=== PATIENT | male | born 1990 | race American Indian/Alaskan Native ===

== ENCOUNTER 2016-11-14 10:47 | Emergency (ER) | payer SELFPAY ==
[2016-11-14 12:15] LABS: Basophils % (Auto) 0.6 % (0.0-1.8); Eosinophils % (Auto) 3.5 % (0.0-4.3); Hematocrit 47.2 % (35.5-45.6); Mean Corpuscular HGB Conc 34 % (32-34); Mean Corpuscular Hemoglobin 32 pg (28-32); Mean Corpuscular Volume 93 fl (84-94); Platelet Count 283 K/mm3 (140-440); Red Blood Count 5.07 M/mm3 (3.65-5.03); Red Cell Distribution Width 12.5 % (13.2-15.2); White Blood Count 10.4 K/mm3 (4.5-11.0)
[2016-11-14 12:20] LABS: Bilirubin,Urine NEG (Negative); Blood,Urine NEG (Negative); Ketones,Urine NEG (Negative); Leukocyte Esterase,Urine NEG (Negative); Mucus,Urine 2+ /HPF; Nitrite,Urine NEG (Negative); Urobilinogen,Urine < 2.0 mg/dL (<2.0); WBC,Urine < 1.0 /HPF (0.0-6.0)
[2016-11-14 12:52] LABS: Alanine Aminotransferase 25 units/L (7-56); Albumin 4.4 g/dL (3.9-5); Albumin/Globulin Ratio 1.4 %; Alkaline Phosphatase 79 units/L (35-129); Anion Gap 16 mmol/L; BUN/Creatinine Ratio 9.16; Bilirubin,Total 1.2 mg/dL (0.1-1.2); Blood Urea Nitrogen 11 mg/dL (9-20); Calcium 9.5 mg/dL (8.4-10.2); Carbon Dioxide 28 mmol/L (22-30); Chloride 94.4 mmol/L (98-107); Glucose 84 mg/dL (75-100); Lipase 21 units/L (13-60); Potassium 4.6 mmol/L (3.6-5.0); Sodium 134 mmol/L (137-145); Total Protein 7.5 g/dL (6.3-8.2)
[2016-11-14] MEDS ORDERED: ALUM-MAG HYDROX-SIMETH 200-200-20MG/5ML PO ONE (14:11)
[2016-11-14] MEDS ORDERED: BENTYL IM ONE (14:11)
[2016-11-14] MEDS ORDERED: LIDOCAINE VISCOUS 2% PO ONE (14:11)
--- NOTE | 2016-11-14 15:16 | Emergency Department Report ---
Entered by LATOYA NICOLE, acting as scribe for HAO LUCIANO PA. ED Abdominal Pain HPI - General Chief Complaint: Abdominal Pain Stated Complaint: ABD PAIN Time Seen by Provider: 11/14/16 12:56 Source: patient Mode of arrival: Ambulatory Limitations: No Limitations - History of Present Illness Initial Comments: 26 y/o male with no significant PMHx, presents to the ED c/o epigastric abdominal pain beginning 6 days ago. The patient states that the night before the symptoms began, he ate a mcflurry and had some beer. He states he has a Hx of lactose intolerance that causes abdominal pain. The symptoms are not alleviated with OTC milk of magnesia. Associated symptoms of nausea, vomiting ( no episodes since 3 days ago), and diarrhea (before and after taking milk of magnesia), but he denies SOB, fever, chills, bloody stool, urinary frequency, urinary urgency, penile discharge, cough, hematuria, and chest pain. Noted the patient's children recently began daycare and had fever/URI symptoms. MD Complaint: abdominal pain -: days(s) (6 days ago) Migration to: no migration Severity scale (0 -10): 10 (occasionally 10/10, currently 1/10 in the ED) Quality: other (twisting, squeezing) Consistency: intermittent Improves With: nothing Worsens With: eating Context: sick contacts (patient's children recently started daycare, have fever/ URI symptoms), other (patient notes that he had beer and a mcflurry prior to the onset of the symptoms, has Hx of lactose intolerance) Associated Symptoms: nausea, vomiting (last episode of vomiting was 3 days ago) , diarrhea. denies: fever, chills, dysuria, hematemesis, other (blood in stool , SOB, chest pain, penile discharge, cough, rhinorrhea) Treatments Prior to Arrival: other (OTC milk of magnesia) - Related Data Previous Rx's Medication Instructions Recorded Last Taken Type Ondansetron [Zofran Odt] 4 mg PO Q8HR #20 tab.rapdis 11/14/16 Unknown Rx Allergies Allergy/AdvReac Type Severity Reaction Status Date / Time No Known Allergies Allergy Unverified 11/14/16 11:29 ED Review of Systems Comment: All other systems reviewed and negative Constitutional: denies: chills, fever Respiratory: denies: cough, shortness of breath Cardiovascular: denies: chest pain Gastrointestinal: abdominal pain (epigastric), nausea, vomiting, diarrhea Genitourinary: denies: urgency, dysuria, frequency, hematuria, discharge Neurological: denies: weakness, numbness ED Past Medical Hx - Past Medical History Hx GERD: Yes - Surgical History Past Surgical History?: No - Social History Smoking Status: Current Every Day Smoker Substance Use Type: Alcohol - Medications Home Medications: Home Medications Medication Instructions Recorded Confirmed Last Taken Type Ondansetron [Zofran Odt] 4 mg PO Q8HR #20 tab.rapdis 11/14/16 Unknown Rx ED Physical Exam - General Limitations: No Limitations - Other Other exam information: GENERAL: The patient is well-developed and well-nourished. Patient is in NAD. HEAD: Normocephalic. Atraumatic. EYES: Extraocular motions are intact, PERRL. EARS: External auditory canals and tympanic membranes clear; hearing grossly intact. NOSE: Normal nasal mucosa with no nasal discharge. THROAT: No erythema, swelling or exudates. NECK: Supple, nontender, without lymphadenopathy. No meningitic signs are noted. CHEST/LUNGS: Clear to auscultation throughout. HEART/CARDIOVASCULAR: Regular rate and rhythm. No murmurs, rubs or gallops. ABDOMEN: Abdomen is soft, tender to palpation over the epigastric area, Bowel sounds normoactive. No guarding or rebound tenderness, no rigidity. EXTREMITIES: No cyanosis, clubbing or edema. Peripheral pulses intact. Capillary refill less than 2 seconds. ED Course Vital Signs 11/14/16 11:29 Temperature 98.2 F Pulse Rate 76 Respiratory 18 Rate Blood Pressure 118/62 O2 Sat by Pulse 100 Oximetry ED Medical Decision Making - Lab Data Result diagrams: 11/14/16 11:50 11/14/16 11:50 Vital Signs 11/14/16 11:29 Temperature 98.2 F Pulse Rate 76 Respiratory 18 Rate Blood Pressure 118/62 O2 Sat by Pulse 100 Oximetry - Medical Decision Making 26 y/o male presents complaining of epigastric abdominal pain beginning 6 days ago. His lab results and urinalysis are essentially negative. Patient was given GI cocktail and reports symptomatic relief post medication. Patient is in no acute distress at this time. He will be discharged home on Zofran and is encouraged to follow up with a primary care provider. He is encouraged to return to the emergency room for any worsening symptoms. ED Disposition Clinical Impression: Abdominal pain Qualifiers: Abdominal location: epigastric Qualified Code(s): R10.13 - Epigastric pain Disposition: DISCHARGED TO HOME OR SELFCARE Is pt being admited?: No Does the pt Need Aspirin: No Condition: Stable Instructions: Gastroenteritis (ED) Additional Instructions: Follow-up with primary care provider. Return to the emergency department if symptoms worsen. Prescriptions: Ondansetron [Zofran Odt] 4 mg PO Q8HR #20 tab.rapdis Referrals: PRIMARY CAREMD [Primary Care Provider] - 3-5 Days GORAN LAM MD [Staff Physician] - 3-5 Days Forms: Work/School Release Form(ED) Time of Disposition: 15:14 This documentation as recorded by the COREY jane GRACE,accurately reflects the service I personally performed and the decisions made by ,HAO LUCIANO PA.
[2016-11-14 15:24] VITALS: BP 121/70
== END 2016-11-14 15:22 | disposition home or self-care (01) ==
LOC: ED 10:47
DX: R10.13 Epigastric pain (principal); K21.9 Gastro-esophageal reflux disease without esophagitis; F17.200 Nicotine dependence, unspecified, uncomplicated
CPT/HCPCS: 36415; 80053; 81001; 83690; 85025; 96372; 99283; J0500

== ENCOUNTER 2016-11-18 09:00 | Emergency (ER) | payer SELFPAY ==
[2016-11-18 10:25] LABS: Basophils % (Auto) 0.9 % (0.0-1.8); Eosinophils % (Auto) 4.2 % (0.0-4.3); Hemoglobin 14.8 gm/dl (11.8-15.2); Mean Corpuscular HGB Conc 33 % (32-34); Mean Corpuscular Hemoglobin 31 pg (28-32); Mean Corpuscular Volume 94 fl (84-94); Platelet Count 282 K/mm3 (140-440); Red Cell Distribution Width 12.3 % (13.2-15.2); White Blood Count 5.5 K/mm3 (4.5-11.0)
[2016-11-18 10:44] LABS: Alanine Aminotransferase 20 units/L (7-56); Albumin 4.2 g/dL (3.9-5); Albumin/Globulin Ratio 1.4 %; Alkaline Phosphatase 67 units/L (35-129); Anion Gap 15 mmol/L; BUN/Creatinine Ratio 5.45; Bilirubin,Total 0.8 mg/dL (0.1-1.2); Blood Urea Nitrogen 6 mg/dL (9-20); Calcium 9.3 mg/dL (8.4-10.2); Carbon Dioxide 26 mmol/L (22-30); Chloride 99.3 mmol/L (98-107); Glucose 69 mg/dL (75-100); Lipase 22 units/L (13-60); Potassium 4.4 mmol/L (3.6-5.0); Sodium 136 mmol/L (137-145); Total Protein 7.2 g/dL (6.3-8.2)
[2016-11-18 12:31] LABS: Bacteria,Urine 1+ /HPF (Negative); Bilirubin,Urine NEG (Negative); Blood,Urine NEG (Negative); Ketones,Urine NEG (Negative); Leukocyte Esterase,Urine NEG (Negative); Mucus,Urine FEW /HPF; Nitrite,Urine NEG (Negative); Protein,Urine <15 mg/dL mg/dL (Negative); Urobilinogen,Urine < 2.0 mg/dL (<2.0); WBC,Urine < 1.0 /HPF (0.0-6.0)
[2016-11-18] MEDS ORDERED: PEPCID IV ONE (15:56)
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
[2016-11-18 17:26] VITALS: BP 112/66
== END 2016-11-18 17:26 | disposition home or self-care (01) ==
LOC: ED 09:00
DX: R10.13 Epigastric pain (principal); K21.9 Gastro-esophageal reflux disease without esophagitis; F17.200 Nicotine dependence, unspecified, uncomplicated
CPT/HCPCS: 36415; 74177; 80053; 81001; 83690; 85025; 96374; 99284; Q9967

== ENCOUNTER 2017-07-21 18:48 | Emergency (ER) | payer SELFPAY ==
[2017-07-21 19:28] LABS: Basophils % (Auto) 0.8 % (0.0-1.8); Eosinophils % (Auto) 3.1 % (0.0-4.3); Hematocrit 43.7 % (35.5-45.6); Hemoglobin 14.7 gm/dl (11.8-15.2); Mean Corpuscular HGB Conc 34 % (32-34); Mean Corpuscular Hemoglobin 33 pg (28-32); Mean Corpuscular Volume 97 fl (84-94); Platelet Count 217 K/mm3 (140-440); Red Blood Count 4.51 M/mm3 (3.65-5.03)
[2017-07-21 19:35] LABS: Alanine Aminotransferase 19 units/L (7-56); Albumin 4.1 g/dL (3.9-5); Albumin/Globulin Ratio 1.9 %; Alkaline Phosphatase 51 units/L (35-129); BUN/Creatinine Ratio 14; Blood Urea Nitrogen 14 mg/dL (9-20); Carbon Dioxide 24 mmol/L (22-30); Glucose 94 mg/dL (75-100); Lipase 16 units/L (13-60); Total Protein 6.3 g/dL (6.3-8.2)
[2017-07-21 19:36] LABS: Anion Gap 15 mmol/L; Chloride 104.6 mmol/L (98-107); Potassium 3.9 mmol/L (3.6-5.0); Sodium 140 mmol/L (137-145)
[2017-07-21 23:16] VITALS: BP 116/61
[2017-07-21 23:34] LABS: Bilirubin,Urine NEG (Negative); Blood,Urine NEG (Negative); Ketones,Urine TR mg/dL (Negative); Leukocyte Esterase,Urine NEG (Negative); Mucus,Urine 2+ /HPF; Nitrite,Urine NEG (Negative); Protein,Urine <15 mg/dL mg/dL (Negative)
--- NOTE | 2017-07-22 01:07 | Emergency Department Report ---
ED Abdominal Pain HPI - General Chief Complaint: Abdominal Pain Stated Complaint: ABDOMINAL PAIN Time Seen by Provider: 07/22/17 01:00 Source: patient Mode of arrival: Ambulatory Limitations: No Limitations - History of Present Illness Initial Comments: 27 YO MALE WITH CRAMPING ABDOMINAL PAIN THAT BEGAN AFTER THANKSGIVING. HE VOMITED AT 0300 AND THAT 1300 TODAY. HIS PAIN IS INTERMITTENT AND IS CRAMPY IN NATURE. HE DID NOT GO TO WORK BECAUSE OF HIS PAIN. HE DENIES FEVER, CHILL OR DIARRHEA. MD Complaint: abdominal pain -: Gradual, days(s) (1) Location: epigastric Radiation: none Migration to: no migration Severity scale (0 -10): 4 Quality: cramping Consistency: intermittent Improves With: nothing Worsens With: nothing Associated Symptoms: nausea, vomiting. denies: diarrhea, fever, chills, constipation - Related Data Previous Rx's Medication Instructions Recorded Last Taken Type Ondansetron [Zofran Odt] 4 mg PO Q8HR #20 tab.rapdis 11/14/16 Unknown Rx Famotidine [Pepcid] 20 mg PO BID #20 tablet 11/18/16 Unknown Rx traMADol [Ultram] 50 mg PO Q6HR PRN #10 tablet 11/18/16 Unknown Rx Ondansetron [Zofran TAB] 8 mg PO Q8HR PRN #12 tablet 07/22/17 Unknown Rx Allergies Allergy/AdvReac Type Severity Reaction Status Date / Time No Known Allergies Allergy Unverified 11/18/16 09:59 ED Review of Systems ROS: Stated complaint: ABDOMINAL PAIN Other details as noted in HPI Constitutional: denies: chills, fever Eyes: denies: eye pain, eye discharge, vision change ENT: denies: ear pain, throat pain Respiratory: denies: cough, shortness of breath, wheezing Cardiovascular: denies: chest pain, palpitations Endocrine: no symptoms reported Gastrointestinal: abdominal pain, nausea, vomiting. denies: diarrhea Genitourinary: denies: urgency, dysuria Musculoskeletal: denies: back pain, joint swelling, arthralgia Skin: denies: rash, lesions Neurological: denies: headache, weakness, paresthesias Psychiatric: denies: anxiety, depression Hematological/Lymphatic: denies: easy bleeding, easy bruising ED Past Medical Hx - Past Medical History Hx GERD: Yes - Surgical History Past Surgical History?: No - Social History Smoking Status: Current Every Day Smoker Substance Use Type: Alcohol - Medications Home Medications: Home Medications Medication Instructions Recorded Confirmed Last Taken Type Ondansetron [Zofran Odt] 4 mg PO Q8HR #20 tab.rapdis 11/14/16 Unknown Rx Famotidine [Pepcid] 20 mg PO BID #20 tablet 11/18/16 Unknown Rx traMADol [Ultram] 50 mg PO Q6HR PRN #10 tablet 11/18/16 Unknown Rx Ondansetron [Zofran TAB] 8 mg PO Q8HR PRN #12 tablet 07/22/17 Unknown Rx ED Physical Exam - General Limitations: No Limitations General appearance: alert, in no apparent distress - Head Head exam: Present: atraumatic, normocephalic - Eye Eye exam: Present: normal appearance - ENT ENT exam: Present: mucous membranes moist - Neck Neck exam: Present: normal inspection - Respiratory Respiratory exam: Present: normal lung sounds bilaterally. Absent: respiratory distress - Cardiovascular Cardiovascular Exam: Present: regular rate, normal rhythm. Absent: systolic murmur, diastolic murmur, rubs, gallop - GI/Abdominal GI/Abdominal exam: Present: soft, tenderness (EPIGASTRIUM), normal bowel sounds , hyperactive bowel sounds. Absent: distended, guarding, rebound, rigid - Rectal Rectal exam: Present: deferred - Extremities Exam Extremities exam: Present: normal inspection, full ROM - Back Exam Back exam: Present: normal inspection, full ROM - Neurological Exam Neurological exam: Present: alert, oriented X3, CN II-XII intact - Psychiatric Psychiatric exam: Present: normal affect, normal mood - Skin Skin exam: Present: warm, dry, intact, normal color. Absent: rash ED Course Vital Signs 07/21/17 07/21/17 18:52 23:13 Temperature 98.8 F 97.6 F Pulse Rate 84 78 Respiratory 16 18 Rate Blood Pressure 108/75 116/61 O2 Sat by Pulse 98 96 Oximetry ED Medical Decision Making - Lab Data Result diagrams: 07/21/17 19:05 07/21/17 19:05 - Radiology Data Radiology results: report reviewed (ACUTE ABD SERIES: NEGATIVE) Critical care attestation.: If time is entered above; I have spent that time in minutes in the direct care of this critically ill patient, excluding procedure time. ED Disposition Clinical Impression: Nausea & vomiting Qualifiers: Vomiting type: unspecified Vomiting Intractability: unspecified Qualified Code( s): R11.2 - Nausea with vomiting, unspecified Abdominal pain Qualifiers: Abdominal location: epigastric Qualified Code(s): R10.13 - Epigastric pain Disposition: TO HOME OR SELFCARE Is pt being admited?: No Does the pt Need Aspirin: No Condition: Stable Instructions: Abdominal Pain (ED), Acute Nausea and Vomiting (ED) Prescriptions: Ondansetron [Zofran TAB] 8 mg PO Q8HR PRN #12 tablet PRN Reason: Vomiting Referrals: PRIMARY CARE,MD [Primary Care Provider] - 3-5 Days [facility] [Outside] - 3-5 Days Forms: Work/School Release Form(ED)
--- NOTE | 2017-07-22 03:26 | XRay Report ---
FINAL REPORT PROCEDURE: XR ABD SERIES W CXR 1V TECHNIQUE: Abdominal series complete, including supine and upright AP views of the abdomen and frontal chest. HISTORY: ABD PAIN COMPARISON: No prior studies are available for comparison. FINDINGS: Heart: Normal. Mediastinum/Vessels: Normal. Lungs/Pleural space: Normal. Bowel gas pattern: There is mucosal thickening of the transverse colon which could indicate colitis. There is no obstruction. There is no fecal impaction.. Masses or calcifications: None. Bony structures: No acute osseous abnormality. Other: No free intraperitoneal air. IMPRESSION: Normal heart and lungs. There is mucosal thickening of the transverse colon which could indicate colitis. There is no obstruction. There is no fecal impaction.. There is no pneumoperitoneum. .
== END 2017-07-22 04:08 | disposition home or self-care (01) ==
LOC: ED 18:48
DX: R11.2 Nausea with vomiting, unspecified (principal); R10.13 Epigastric pain; K21.9 Gastro-esophageal reflux disease without esophagitis; F17.200 Nicotine dependence, unspecified, uncomplicated
CPT/HCPCS: 36415; 74022; 80053; 81001; 83690; 85025; 99284

== ENCOUNTER 2017-07-28 07:14 | Emergency (ER) | payer SELFPAY | END 2017-07-28 07:15 | disposition left against medical advice (07) | LOC: ED 07:14 | DX: R10.9 Unspecified abdominal pain (principal); Z53.21 Procedure and treatment not carried out due to patient leaving prior to being seen by health care provider ==

== ENCOUNTER 2019-10-10 13:37 | Emergency (ER) | payer SELFPAY ==
[2019-10-10 14:08] VITALS: BP 132/58
--- NOTE | 2019-10-10 14:31 | Emergency Department Report ---
Blank Doc - Documentation Documentation: 29-year-old male that presents with n/v and generlized weakness x2 weeks. This initial assessment/diagnostic orders/clinical plan/treatment(s) is/are subject to change based on patients health status, clinical progression and re- assessment by fellow clinical providers in the ED. Further treatment and workup at subsequent clinical providers discretion. Patient/guardian urged not to elope from the ED as their condition may be serious if not clinically assessed and managed. Initial orders include: labs UA
[2019-10-10 15:39] LABS: Hematocrit 41.8 % (35.5-45.6); Hemoglobin 13.8 gm/dl (11.8-15.2); Mean Corpuscular HGB Conc 33 % (32-34); Mean Corpuscular Volume 93 fl (84-94); Platelet Count 237 K/mm3 (140-440); Red Cell Distribution Width 13.2 % (13.2-15.2)
[2019-10-10] MEDS ORDERED: FAMOTIDINE 20 MG/2 ML INJ IV ONE (15:52)
[2019-10-10] MEDS ORDERED: SODIUM CHLORIDE 0.9% 1000 ML 1,000 ML IV ONE (15:52)
[2019-10-10] MEDS ORDERED: ONDANSETRON 4 MG/2 ML INJ IV ONE (15:52)
[2019-10-10 16:01] LABS: Alanine Aminotransferase 16 units/L (7-56); Albumin 3.5 g/dL (3.9-5); BUN/Creatinine Ratio 12; Blood Urea Nitrogen 14 mg/dL (9-20); Calcium 8.5 mg/dL (8.4-10.2); Hemolysis Index 8
[2019-10-10 16:47] LABS: Basophils % (Manual) 0 % (0.0-1.8); RBC Morphology Normal; Total Cells Counted 100
--- NOTE | 2019-10-10 17:16 | Emergency Department Report ---
ED N/V/D HPI - General Chief complaint: Nausea/Vomiting/Diarrhea Stated complaint: WEAKNESS/N/V Time Seen by Provider: 10/10/19 14:30 Source: patient Mode of arrival: Ambulatory Limitations: No Limitations - History of Present Illness Initial comments: Patient is a 29-year-old F [place] male who states approximately 2 weeks ago he ate some chitterlings and several days afterwards started having nausea vomiting. Patient states he has been unable to control the nausea vomiting is continued to vomit throughout the last week. Patient states he is getting weaker and weaker. He states that he vomit is bilious. Denies fevers. Stools are loose but not watery. Patient states he does have some crampy generalized abdominal discomfort especially when he is about to vomit. Patient states occasionally can keep water down - Related Data Previous Rx's Medication Instructions Recorded Last Taken Type Ondansetron [Zofran Odt] 4 mg PO Q8HR #20 tab.rapdis 11/14/16 Unknown Rx Famotidine [Pepcid] 20 mg PO BID #20 tablet 11/18/16 Unknown Rx traMADoL [Ultram] 50 mg PO Q6HR PRN #10 tablet 11/18/16 Unknown Rx Ondansetron (Nf) [Zofran TAB] 8 mg PO Q8HR PRN #12 tablet 07/22/17 Unknown Rx Dicyclomine [Bentyl] 20 mg PO QID #10 tablet 10/10/19 Unknown Rx Famotidine [Pepcid] 40 mg PO QHS #10 tablet 10/10/19 Unknown Rx Ondansetron [Zofran Odt] 4 mg PO Q8HR #10 tab.rapdis 10/10/19 Unknown Rx Allergies Allergy/AdvReac Type Severity Reaction Status Date / Time No Known Allergies Allergy Unverified 11/18/16 09:59 ED Review of Systems ROS: Stated complaint: WEAKNESS/N/V Other details as noted in HPI Comment: All other systems reviewed and negative ED Past Medical Hx - Past Medical History Hx GERD: Yes - Surgical History Past Surgical History?: No - Social History Smoking Status: Current Every Day Smoker Substance Use Type: Marijuana - Medications Home Medications: Home Medications Medication Instructions Recorded Confirmed Last Taken Type Ondansetron [Zofran Odt] 4 mg PO Q8HR #20 tab.rapdis 11/14/16 Unknown Rx Famotidine [Pepcid] 20 mg PO BID #20 tablet 11/18/16 Unknown Rx traMADoL [Ultram] 50 mg PO Q6HR PRN #10 tablet 11/18/16 Unknown Rx Ondansetron (Nf) [Zofran TAB] 8 mg PO Q8HR PRN #12 tablet 07/22/17 Unknown Rx Dicyclomine [Bentyl] 20 mg PO QID #10 tablet 10/10/19 Unknown Rx Famotidine [Pepcid] 40 mg PO QHS #10 tablet 10/10/19 Unknown Rx Ondansetron [Zofran Odt] 4 mg PO Q8HR #10 tab.rapdis 10/10/19 Unknown Rx ED Physical Exam - General Limitations: No Limitations General appearance: alert, in no apparent distress - Head Head exam: Present: atraumatic, normocephalic - Eye Eye exam: Present: normal appearance - ENT ENT exam: Present: mucous membranes dry - Neck Neck exam: Present: normal inspection - Respiratory Respiratory exam: Present: normal lung sounds bilaterally. Absent: respiratory distress, wheezes, rales, rhonchi - Cardiovascular Cardiovascular Exam: Present: regular rate, normal rhythm, normal heart sounds. Absent: systolic murmur, diastolic murmur, rubs, gallop - GI/Abdominal GI/Abdominal exam: Present: soft, tenderness (epigastric), normal bowel sounds. Absent: distended, guarding, rebound, rigid - Rectal Rectal exam: Present: deferred - Extremities Exam Extremities exam: Present: normal inspection - Back Exam Back exam: Present: normal inspection - Neurological Exam Neurological exam: Present: alert, oriented X3 - Psychiatric Psychiatric exam: Present: normal affect, normal mood - Skin Skin exam: Present: warm, dry, intact, normal color. Absent: rash ED Course Vital Signs 10/10/19 14:06 Temperature 98.8 F Pulse Rate 61 Respiratory 18 Rate Blood Pressure 132/58 O2 Sat by Pulse 98 Oximetry ED Medical Decision Making - Lab Data Result diagrams: 10/10/19 15:26 10/10/19 15:26 - Medical Decision Making Patient was hydrated and given antiemetics and is states he is starting to feel better. Patient laboratory studies within normal limits. Does not appear to the patient needs imaging at this time. Patient likely with mild food poisoning. Patient will be discharged home with medication for symptomatic relief. Critical care attestation.: If time is entered above; I have spent that time in minutes in the direct care of this critically ill patient, excluding procedure time. ED Disposition Clinical Impression: Food poisoning, Dehydration Disposition: DC-01 TO HOME OR SELFCARE Is pt being admited?: No Does the pt Need Aspirin: No Condition: Stable Instructions: Food Poisoning (ED), Dehydration (ED) Referrals: PRIMARY CARE, [Primary Care Provider] - 3-5 Days Time of Disposition: 17:15
== END 2019-10-10 17:45 | disposition home or self-care (01) ==
LOC: ED 13:37
DX: A05.9 Bacterial foodborne intoxication, unspecified (principal); E86.0 Dehydration; K21.9 Gastro-esophageal reflux disease without esophagitis; F17.200 Nicotine dependence, unspecified, uncomplicated; F12.10 Cannabis abuse, uncomplicated; Z79.1 Long term (current) use of non-steroidal anti-inflammatories (NSAID); Z79.899 Other long term (current) drug therapy
CPT/HCPCS: 36415; 80053; 83690; 85007; 85025; 96361; 96374; 96375; 99283; J2405; J7030

== ENCOUNTER 2019-11-25 13:51 | Emergency (ER) | payer SELFPAY ==
[2019-11-25 14:23] VITALS: BP 137/69
--- NOTE | 2019-11-25 16:53 | Emergency Department Report ---
Chief Complaint: Medical Clearance Stated Complaint: NAUSEA/ABD PAIN Time Seen by Provider: 11/25/19 16:48 - HPI History of Present Illness: 29yo M states that he had an episode of weakness after giving plasma x 1 day. He verbalizes that he forgot to eat afterwards. 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 - ROS Review of Systems: All reviewed and WNL - Exam Vital Signs: Vital Signs 11/25/19 14:18 Temperature 98 F Pulse Rate 76 Respiratory 18 Rate Blood Pressure 137/69 O2 Sat by Pulse 99 Oximetry Physical Exam: General- WNL HEENT-WNL Neck-WNL Lungs-WNL Heart-WNL Abdomen-WNL Psych-WNL Neuro-WNL MSE screening note: Focused history and physical exam performed. Due to findings the following was ordered: Pt was explained that his acute weakness was due to his lack of nutrition post- plasma donation. he was instructed to consume adequate nutrition and fluids; return to normal activities. ED Disposition for MSE Condition: Stable Referrals: PRIMARY CARE, [Primary Care Provider] - 3-5 Days
== END 2019-11-25 17:45 | disposition left against medical advice (07) ==
LOC: ED 13:51
DX: R53.1 Weakness (principal)
CPT/HCPCS: 99282